=== PATIENT | female | born 2000 | race Caucasian/White ===

== ENCOUNTER 2022-06-07 15:30 | Inpatient (IN) | payer MEDICAID ==
[2022-06-07] MEDS ORDERED: Sodium Chloride 0.9% 10 ML Syringe FLUSH PRN (16:39)
[2022-06-07] MEDS ORDERED: Ondansetron 4 MG/2 ML SDV IVPUSH PRN (16:39)
[2022-06-07] MEDS ORDERED: Misoprostol 25 MCG (1/4 of 100 MCG) Tab VAG ONE (16:44)
[2022-06-07 18:00] LABS: ESTIMATED GFR 127 mL/min (>60)
[2022-06-07] MEDS ORDERED: diphenhydrAMINE 50 MG/ML SDV IVPUSH PRN (19:45)
[2022-06-07] MEDS ORDERED: fentaNYL 100 MCG/2 ML SDV EPIDUR PRN (19:45)
[2022-06-07] MEDS ORDERED: ePHEDrine 50 MG/ML SDV IVPUSH PRN (19:45)
[2022-06-07] MEDS ORDERED: Bupivacaine/fentaNYL/NS 100 ML Bag EPIDUR PRN (19:45)
[2022-06-07] MEDS: Misoprostol 25 MCG (1/4 of 100 MCG) Tab VAG SCH (22:25)
[2022-06-08] MEDS ORDERED: Ropivacaine 0.2% PF 2 MG/ML 20 ML SDV ONE
[2022-06-08] MEDS ORDERED: Lidocaine 1.5% with EPINEPHrine 1:200,000 5 ML Amp ONE ×2
[2022-06-08] MEDS ORDERED: Acetaminophen 325 MG Tab PO PRN (00:01)
[2022-06-08] MEDS ORDERED: Acetaminophen 325 MG Tab ONE (00:03)
[2022-06-08] MEDS: Misoprostol 25 MCG (1/4 of 100 MCG) Tab VAG SCH ×3 (01:24→10:41)
[2022-06-08] MEDS: Oxytocin/Lactated Ringers 10 UNIT/1,000 ML BAG IV SCH ×2 (05:28→14:23)
[2022-06-08] MEDS: Lactated Ringers 1,000 ML IV SCH ×4 (06:15→10:40)
[2022-06-08] MEDS: Nalbuphine 10 MG/0.5 ML Syringe IVPUSH PRN ×2 (06:16→18:01)
[2022-06-08] MEDS: Sodium Chloride 0.9% 10 ML Syringe FLUSH SCH ×2 (10:40→10:41)
[2022-06-08] MEDS ORDERED: Ropivacaine 200 MG in Premix Bag 1 BAG EPIDUR SCH (13:00)
[2022-06-08] MEDS ORDERED: Ropivacaine 100 ML ONE ×2 (13:03→16:56)
[2022-06-08] MEDS ORDERED: Dexmedetomidine 200 MCG/2 ML SDV ONE (13:52)
[2022-06-08] MEDS ORDERED: Azithromycin 250 MG in Sodium Chloride 0.9% 250 ML IV STA (19:20)
[2022-06-08] MEDS ORDERED: Citric Acid/Sodium Citrate Solution 30 ML Cup PO ONE (19:22)
[2022-06-08] MEDS ORDERED: Metoclopramide 10 MG/2 ML SDV IVPUSH ONE (19:23)
[2022-06-08] MEDS ORDERED: Azithromycin 500 MG Vial ONE (19:29)
[2022-06-08] MEDS ORDERED: fentaNYL 100 MCG/2 ML SDV ONE (19:53)
[2022-06-08] MEDS ORDERED: Bupivacaine 0.5% 30 ML SDV ONE (19:53)
[2022-06-08] MEDS ORDERED: Propofol 200 MG/20 ML SDV ONE (19:53)
[2022-06-08] MEDS ORDERED: Rocuronium 50 MG/5 ML Vial ONE (19:53)
[2022-06-08] MEDS ORDERED: Lidocaine 1% 2 ML ONE (19:53)
[2022-06-08] MEDS ORDERED: Oxytocin 10 Units/1 ML SDV ONE (20:04)
[2022-06-08] MEDS ORDERED: Ketorolac 30 MG/ML SDV ONE (20:10)
[2022-06-08] MEDS ORDERED: Sugammadex Sodium 200 MG/2 ML VIAL ONE (20:11)
[2022-06-08] MEDS ORDERED: Ondansetron 4 MG/2 ML SDV ONE (20:11)
[2022-06-08] MEDS ORDERED: Ondansetron 4 MG/2 ML SDV IVPUSH PRN (20:41)
[2022-06-08] MEDS ORDERED: Meperidine 50 MG/ML Vial IVPUSH PRN (20:41)
[2022-06-08] MEDS ORDERED: diphenhydrAMINE 50 MG/ML SDV IVPUSH PRN ×2 (20:41→21:50)
[2022-06-08] MEDS ORDERED: HYDROmorphone 0.5 MG/0.5 ML Syringe IVPUSH ONE (20:43)
[2022-06-08] MEDS: fentaNYL 100 MCG/2 ML SDV IVPUSH PRN ×2 (20:53→21:14)
[2022-06-08] MEDS ORDERED: Tranexamic Acid 1,000 MG/10 ML Vial ONE (21:31)
[2022-06-08] MEDS ORDERED: Tranexamic Acid 1,000 MG/10 ML Vial IVPUSH ONE (21:45)
[2022-06-08] MEDS ORDERED: Naloxone 0.4 MG/ML SDV IVPUSH PRN (21:50)
[2022-06-08] MEDS ORDERED: Dextrose 5%-Lactated Ringers 1,000 ML IV SCH (21:50)
[2022-06-08] MEDS ORDERED: Ondansetron 4 MG/2 ML SDV IV PRN (21:50)
[2022-06-08] MEDS ORDERED: ePHEDrine 50 MG/ML SDV IVPUSH PRN (21:50)
[2022-06-08] MEDS ORDERED: Acetaminophen/oxyCODONE 325-5 MG Tab PO PRN (21:50)
[2022-06-08] MEDS: HYDROmorphone 0.5 MG/0.5 ML Syringe IVPUSH PRN (22:50)
[2022-06-09] MEDS: Ketorolac 30 MG/ML SDV IVPUSH SCH ×3 (02:12→13:08)
[2022-06-09] MEDS: Acetaminophen/oxyCODONE 325-5 MG Tab PO PRN ×4 (04:17→20:03)
[2022-06-09] MEDS: HYDROmorphone 0.5 MG/0.5 ML Syringe IVPUSH PRN (07:06)
[2022-06-09] MEDS ORDERED: Lactated Ringers 1,000 ML IV ONE (09:24)
[2022-06-09] MEDS: Ibuprofen 600 MG Tab PO PRN (21:18)
[2022-06-10] MEDS: Acetaminophen/oxyCODONE 325-5 MG Tab PO PRN (03:31)
[2022-06-10] MEDS: Ibuprofen 600 MG Tab PO PRN ×2 (03:33→09:57)
== END 2022-06-10 13:10 | disposition home or self-care (01) | DRG 788 ==
LOC: JD.OB 15:30 → OBSVTOIN 06-08 20:02 → JD.OB 06-08 20:07
PROVIDERS: ADMIT Obstetrics & Gynecology; ATTEND Obstetrics & Gynecology
PROC: 10D00Z1 Extraction of Products of Conception, Low, Open Approach (ICD-10-PCS; principal; 2022-06-08)
PROC: 10907ZC Drainage of Amniotic Fluid, Therapeutic from Products of Conception, Via Natural or Artificial Opening (ICD-10-PCS; 2022-06-08)
PROC: 3E033VJ Introduction of Other Hormone into Peripheral Vein, Percutaneous Approach (ICD-10-PCS; 2022-06-08)
PROC: 3E0P7VZ Introduction of Hormone into Female Reproductive, Via Natural or Artificial Opening (ICD-10-PCS; 2022-06-08)
DX: O13.4 Gestational [pregnancy-induced] hypertension without significant proteinuria, complicating childbirth (principal); Z37.0 Single live birth; O24.424 Gestational diabetes mellitus in childbirth, insulin controlled; O62.1 Secondary uterine inertia; Z3A.37 37 weeks gestation of pregnancy; Z88.8 Allergy status to other drugs, medicaments and biological substances; Z91.030 Bee allergy status; Z90.49 Acquired absence of other specified parts of digestive tract; Z83.3 Family history of diabetes mellitus; Z87.891 Personal history of nicotine dependence
CPT/HCPCS: 01967; 01968; 36415; 51702; 59025; 81001; 82565; 82570; 82947; 83615; 84156; 84450; 84460; 84520; 84550; 85025; 86592; 86850; 86900; 86901; 94762; A9270-GY; C1726; J0456; J1170; J1200; J1885; J2300; J2405; J2590; J2704; J2765; J2795; J3010; J3490; J7120